=== PATIENT | male | born 1950 | race Two or more races ===

== ENCOUNTER 2022-11-20 07:47 | Day surgery (SDC) | payer OTHER ==
[~2022-11-20] VITALS: Ht 172.7 cm; Wt 79.4 kg
[~2022-11-20 07:47] MED LIST: CRESTOR10 MG PO
== END 2022-11-20 16:00 | disposition home or self-care (01) ==
LOC: CIR.AMB 07:47
PROVIDERS: ATTEND Orthopaedic Surgery Hand Surgery
DX: S52.531A Colles' fracture of right radius, initial encounter for closed fracture (principal); E11.9 Type 2 diabetes mellitus without complications; E78.00 Pure hypercholesterolemia, unspecified; I10 Essential (primary) hypertension; Z20.822 Contact with and (suspected) exposure to COVID-19; Z88.0 Allergy status to penicillin
CPT/HCPCS: 25609; 25280; 25118; L8699